=== PATIENT | female | born 1950 | race Caucasian/White ===

== ENCOUNTER 2018-09-04 11:46 | Outpatient (CLI) | payer MEDICARE, BC ==
[2018-09-04] VITALS (17 sets, daily range): BP systolic 104–145; BP diastolic 72–92
== END 2018-09-04 23:59 | disposition home or self-care (01) ==
LOC: CARD DIAG 11:46
PROVIDERS: ATTEND Internal Medicine Interventional Cardiology
DX: R42 Dizziness and giddiness (principal); R55 Syncope and collapse
CPT/HCPCS: 93660

== ENCOUNTER 2023-02-13 08:20 | Day surgery (SDC) | payer MEDICARE, BC ==
[~2023-02-13] VITALS: Ht 157.5 cm; Wt 69.3 kg
[2023-02-13] MEDS ORDERED: NO HOME MEDS (09:05)
[2023-02-13 09:07] VITALS: BP 130/65; PULSE 64; RESP 16; TEMP 98.5
[2023-02-13 09:11] VITALS: RESP 16; O2SAT 100
[2023-02-13] MEDS ORDERED: LIDOcaine 1% 30ml preserv. free vial IJ STA (09:16)
[2023-02-13] MEDS ORDERED: normal saline 1000ml 1,000 ML IV SCH (11:05)
[2023-02-13 11:17] VITALS: BP 145/74; PULSE 83; RESP 16; O2SAT 99
[2023-02-13 11:32] VITALS: BP 126/76; PULSE 62; RESP 16; O2SAT 99
[2023-02-13 11:35] VITALS: BP 114/73; PULSE 61; RESP 16; O2SAT 99
[2023-02-13 11:47] VITALS: BP 114/73; PULSE 61; RESP 16; O2SAT 99
== END 2023-02-13 12:10 | disposition home or self-care (01) ==
LOC: SSTAY O 08:20
PROVIDERS: ATTEND Radiology Diagnostic Radiology
DX: R22.1 Localized swelling, mass and lump, neck (principal); Z85.810 Personal history of malignant neoplasm of tongue; Z88.1 Allergy status to other antibiotic agents; Z88.8 Allergy status to other drugs, medicaments and biological substances
CPT/HCPCS: 10005; J3490